=== PATIENT | female | born 1975 | race African-American/Black ===

== ENCOUNTER 2018-02-24 08:58 | Emergency (ER) | payer OTHER ==
[~2018-02-24] VITALS: Ht 162.6 cm; Wt 72.6 kg
[2018-02-24 09:00] VITALS: BP 108/68
[2018-02-24] MEDS ORDERED: XANAX 0.25 MG0.25 MG PO (09:06)
[2018-02-24] MEDS ORDERED: HYDROCORTISONE3011 TOP (10:05)
== END 2018-02-24 10:20 | disposition home or self-care (01) ==
LOC: ER 08:58
DX: G62.9 Polyneuropathy, unspecified (principal); R21 Rash and other nonspecific skin eruption; F17.210 Nicotine dependence, cigarettes, uncomplicated

== ENCOUNTER 2019-06-21 19:24 | Emergency (ER) | payer OTHER ==
[~2019-06-21] VITALS: Ht 162.6 cm; Wt 102.1 kg
[~2019-06-21 19:24] MED LIST: HYDROCORTISONE3011 TOP; XANAX 0.25 MG0.25 MG PO
[2019-06-21] MEDS ORDERED: NOVOLOG100 UNIT/1 SUBQ (19:30)
[2019-06-21] MEDS ORDERED: BASAGLAR K100 UNIT/1 SUBQ (19:31)
[2019-06-21] MEDS ORDERED: CLONAZEPAM 0.50.5 M1 PO (19:31)
[2019-06-21] MEDS ORDERED: TRAZODONE 150150 M1 PO (19:32)
[2019-06-21] MEDS ORDERED: PAIN & FEVER500 MG PO (19:33)
[2019-06-21] MEDS ORDERED: IBUPROFEN 400400 M2 PO (19:33)
[2019-06-21] MEDS ORDERED: LOXAPINE10 MG PO (19:33)
[2019-06-21] MEDS ORDERED: BENZTROPINE MES1 MG PO (19:34)
[2019-06-21 19:54] LABS: ABSOLUTE NEUTROPHILS 3.4 thou/uL (1.4-8.2); BASOPHILS 0.9 % (0.0-2.0); EOSINOPHILS 1.9 % (0.0-3.0); HEMATOCRIT 36.6 % (37.0-47.0); HEMOGLOBIN 12.2 gm/dL (12.0-15.0); LYMPHOCYTES 29.3 % (24.0-44.0); MCH 30.2 pg (26.0-34.0); MCHC 33.4 g/dL (28.0-37.0); MCV 90.3 fL (80.0-100.0); MONOCYTES 7.5 % (1.0-8.0); PLATELET COUNT 187 thou/uL (150-400); POLYS 60.4 % (36.0-66.0); RBC 4.05 mil/uL (4.20-5.00); RDW 13.9 % (10.5-14.5); WBC 5.6 thou/uL (4.0-11.0)
[2019-06-21 20:01] LABS: CALCIUM 9.7 mg/dL (8.5-10.1); CREATININE 0.9 mg/dL (0.6-1.0); POTASSIUM 3.7 mmol/L (3.5-5.1)
[2019-06-21 20:07] LABS: ALBUMIN 3.4 g/dL (3.4-5.0); TOTAL BILIRUBIN 0.2 mg/dL (<0.1-1.0); TOTAL PROTEIN 7.2 g/dL (6.4-8.2)
[2019-06-21 21:34] LABS: URINE BILIRUBIN NEGATIVE (Negative); URINE BLOOD NEGATIVE (Negative); URINE CLARITY CLEAR; URINE COLOR YELLOW; URINE GLUCOSE-RANDOM* NEGATIVE (Negative); URINE KETONES NEGATIVE (Negative); URINE LEUKOCYTES-REFLEX NEGATIVE (Negative); URINE NITRITE-REFLEX NEGATIVE (Negative); URINE PROTEIN (DIPSTICK) NEGATIVE (Negative); URINE SPECIFIC GRAVITY <= 1.005 (1.005-1.035); URINE UROBILINOGEN 0.2 E.U./dl (0.2-1.0)
[2019-06-21] MEDS ORDERED: TRAMADOL 50 MG50 MG PO (22:47)
[2019-06-21 22:55] VITALS: BP 104/79
== END 2019-06-22 00:20 | disposition home or self-care (01) ==
LOC: ER 19:24
PROVIDERS: Physician Assistant
DX: D25.9 Leiomyoma of uterus, unspecified (principal); F41.9 Anxiety disorder, unspecified; E11.9 Type 2 diabetes mellitus without complications; F20.9 Schizophrenia, unspecified; Z90.49 Acquired absence of other specified parts of digestive tract; Z90.89 Acquired absence of other organs; F17.210 Nicotine dependence, cigarettes, uncomplicated; Z79.4 Long term (current) use of insulin

== ENCOUNTER 2019-10-13 14:04 | Emergency (ER) | payer OTHER ==
[~2019-10-13] VITALS: Ht 160 cm; Wt 92.1 kg
[~2019-10-13 14:04] MED LIST changes: +BASAGLAR K100 UNIT/1 SUBQ; +BENZTROPINE MES1 MG PO; +CLONAZEPAM 0.50.5 M1 PO; +IBUPROFEN 400400 M2 PO; +LOXAPINE10 MG PO; +NOVOLOG100 UNIT/1 SUBQ; +PAIN & FEVER500 MG PO; +TRAMADOL 50 MG50 MG PO; +TRAZODONE 150150 M1 PO
[2019-10-13] MEDS ORDERED: CLONAZEPAM 0.50.5 M1 PO (14:21)
[2019-10-13] MEDS ORDERED: PREGABALIN75 MG PO (14:22)
[2019-10-13] MEDS ORDERED: COLACE100 MG PO (14:23)
[2019-10-13] MEDS ORDERED: NORCO 5-325 TA1 EAC1 PO (14:23)
[2019-10-13] MEDS ORDERED: NAPROSYN500 MG PO (16:07)
[2019-10-13 17:02] VITALS: BP 139/88
== END 2019-10-13 17:03 | disposition home or self-care (01) ==
LOC: ER 14:04
DX: S20.211A Contusion of right front wall of thorax, initial encounter (principal); S80.211A Abrasion, right knee, initial encounter; E11.9 Type 2 diabetes mellitus without complications; F41.9 Anxiety disorder, unspecified; F31.9 Bipolar disorder, unspecified; F17.210 Nicotine dependence, cigarettes, uncomplicated; Z91.040 Latex allergy status; X58.XXXA Exposure to other specified factors, initial encounter; Y93.89 Activity, other specified; Y92.89 Other specified places as the place of occurrence of the external cause; Y99.8 Other external cause status

== ENCOUNTER 2019-10-18 12:20 | Emergency (ER) | payer OTHER ==
[~2019-10-18] VITALS: Ht 172.7 cm; Wt 74.8 kg
[~2019-10-18 12:20] MED LIST changes: +COLACE100 MG PO; +NAPROSYN500 MG PO; +NORCO 5-325 TA1 EAC1 PO; +PREGABALIN75 MG PO
[2019-10-18 12:40] LABS: URINE BILIRUBIN NEGATIVE (Negative); URINE BLOOD NEGATIVE (Negative); URINE CLARITY CLEAR; URINE COLOR YELLOW; URINE GLUCOSE-RANDOM* NEGATIVE (Negative); URINE KETONES NEGATIVE (Negative); URINE LEUKOCYTES-REFLEX NEGATIVE (Negative); URINE NITRITE-REFLEX NEGATIVE (Negative); URINE PROTEIN (DIPSTICK) NEGATIVE (Negative); URINE SPECIFIC GRAVITY 1.015 (1.005-1.035); URINE UROBILINOGEN 0.2 E.U./dl (0.2-1.0)
[2019-10-18 13:56] VITALS: BP 125/74
== END 2019-10-18 13:55 | disposition home or self-care (01) ==
LOC: ER 12:20
PROVIDERS: Physician Assistant
DX: N89.8 Other specified noninflammatory disorders of vagina (principal); R10.30 Lower abdominal pain, unspecified; E11.9 Type 2 diabetes mellitus without complications; F17.210 Nicotine dependence, cigarettes, uncomplicated; Z20.2 Contact with and (suspected) exposure to infections with a predominantly sexual mode of transmission; Z87.42 Personal history of other diseases of the female genital tract; Z79.899 Other long term (current) drug therapy; Z79.4 Long term (current) use of insulin; Z91.040 Latex allergy status

== ENCOUNTER 2019-10-29 05:53 | Emergency (ER) | payer OTHER ==
[~2019-10-29] VITALS: Ht 162.6 cm; Wt 104.3 kg
[2019-10-29 10:39] LABS: ABSOLUTE NEUTROPHILS 3.4 thou/uL (1.4-8.2); BASOPHILS 0.5 % (0.0-2.0); EOSINOPHILS 2.5 % (0.0-3.0); HEMATOCRIT 40.6 % (37.0-47.0); HEMOGLOBIN 13.3 gm/dL (12.0-15.0); LYMPHOCYTES 22.9 % (24.0-44.0); MCH 30.7 pg (26.0-34.0); MCHC 32.8 g/dL (28.0-37.0); MCV 93.5 fL (80.0-100.0); MONOCYTES 7.3 % (1.0-8.0); PLATELET COUNT 150 thou/uL (150-400); POLYS 66.8 % (36.0-66.0); RBC 4.34 mil/uL (4.20-5.00); RDW 13.7 % (10.5-14.5); WBC 5.2 thou/uL (4.0-11.0)
[2019-10-29 10:53] LABS: ANION GAP 6 mmol/L (7-16); BUN 13 mg/dL (7-18); CALCIUM 9.4 mg/dL (8.5-10.1); CHLORIDE 103 mmol/L (98-107); CO2 27 mmol/L (21-32); CREATININE 0.9 mg/dL (0.6-1.0); GLUCOSE 129 mg/dL (74-106); POTASSIUM 4.6 mmol/L (3.5-5.1); SODIUM 136 mmol/L (136-145)
[2019-10-29 10:59] LABS: ALBUMIN 3.7 g/dL (3.4-5.0); SALICYLATE 6.7 mg/dL (2.8-20.0); SGOT 21 U/L (15-37); SGPT 33 U/L (30-65); TOTAL BILIRUBIN 0.3 mg/dL (<0.1-1.0); TOTAL PROTEIN 7.2 g/dL (6.4-8.2)
[2019-10-29 12:47] LABS: URINE BILIRUBIN NEGATIVE (Negative); URINE BLOOD NEGATIVE (Negative); URINE CLARITY CLEAR; URINE COLOR YELLOW; URINE GLUCOSE-RANDOM* NEGATIVE (Negative); URINE KETONES NEGATIVE (Negative); URINE LEUKOCYTES-REFLEX NEGATIVE (Negative); URINE NITRITE-REFLEX NEGATIVE (Negative); URINE PROTEIN (DIPSTICK) NEGATIVE (Negative); URINE SPECIFIC GRAVITY 1.025 (1.005-1.035); URINE UROBILINOGEN 0.2 E.U./dl (0.2-1.0)
[2019-10-29 13:03] LABS: AMP/METHAMP Negative (Negative); BARBITURATES Negative (Negative); BENZODIAZEPINES Negative (Negative); COCAINE POSITIVE (Negative); METHADONE Negative (Negative); OPIATES POSITIVE (Negative); PCP Negative (Negative)
[2019-10-29 20:07] VITALS: BP 133/80
== END 2019-10-29 20:07 | disposition home or self-care (01) ==
LOC: ER 05:53
PROVIDERS: Emergency Medicine
DX: F22 Delusional disorders (principal); E11.9 Type 2 diabetes mellitus without complications; F41.9 Anxiety disorder, unspecified; F31.9 Bipolar disorder, unspecified; F17.210 Nicotine dependence, cigarettes, uncomplicated; Z91.040 Latex allergy status; Y08.89XA Assault by other specified means, initial encounter; Y93.89 Activity, other specified; Y92.89 Other specified places as the place of occurrence of the external cause; Y99.8 Other external cause status